=== PATIENT | male | born 2000 | race African-American/Black ===

== ENCOUNTER 2020-01-22 14:42 | Emergency (ER) | payer OTHER ==
[2020-01-22 14:51] VITALS: BP 132/66; PULSE 74; TEMP 97.3; BMI 24.7
--- NOTE | 2020-01-22 16:01 | PDOC ---
History of Present Illness - General Chief Complaint: Injury Stated Complaint: FALL Time Seen by Provider: 01/22/20 15:08 - History of Present Illness Initial Comments: 01/22/20 15:59 19-year-old male without comorbidities presents for left ankle pain after an inversion type injury while walking at work yesterday. Past History - Medical History Allergies/Adverse Reactions: Allergies Allergy/AdvReac Type Severity Reaction Status Date / Time No Known Allergies Allergy Verified 01/22/20 14:47 - Psycho-Social/Smoking History Smoking History: Never smoked - Substance Abuse Hx (Audit-C & DAST Scrn) How often the patient has a drink containing alcohol: Never Score: In Men: 4 or > Positive; In Women: 3 or > Positive: 0 Screen Result (Pos requires Nsg. Audit-10AR): Negative In the last yr the pt used illegal drug/Rx for NonMed reason: No Score: Yes response is considered Positive: 0 Screen Result (Positive result requires Nsg. DAST-10): Negative Review of Systems - Review of Systems Musculoskeletal: Yes: Joint Pain *Physical Exam - Vital Signs Last Vital Signs Temp Pulse Resp BP Pulse Ox 97.3 F L 74 16 132/66 100 01/22/20 14:47 01/22/20 14:47 01/22/20 14:47 01/22/20 14:47 01/22/20 14:47 - Physical Exam 01/22/20 15:59 Left ankle skin color and temperature normal range of motion is slightly limited. There is no tenderness about the proximal fibula or along its distal course. No tenderness about the medial lateral malleolus base of the fifth metatarsal or navicular. Mild tenderness over the ATFL without instability no gross sensorimotor deficits neurovascular intact. ED Treatment Course - RADIOLOGY Radiology Studies Ordered: Category Date Time Status ANKLE-LEFT [RAD] Stat Radiology 01/22/20 15:37 Completed Medical Decision Making - Medical Decision Making 01/22/20 16:00 No fracture trauma or destructive process on radiograph today. Weight-bear as tolerated with Aircast and crutches follow-up with Ortho Tylenol and Motrin for pain I have reviewed the pathophysiology with the patient. They are in agreement with the treatment plan all questions were answered to their satisfaction. Understanding for follow-up without fail was also conveyed to the patient. Again they are in agreement. Discharge - Discharge Information Problems reviewed: Yes Clinical Impression/Diagnosis: Left ankle sprain Condition: Stable Disposition: HOME - Admission No - Follow up/Referral Referrals: Gwen Cordova [Primary Care Provider] - Blane Olivarez DO [Staff Physician] - - Patient Discharge Instructions Additional Instructions: You may weight-bear as tolerated with use of crutches in the Aircast Tylenol as directed for pain. Return to the emergency room for worsening symptoms. And without fail please follow-up with orthopedic surgery in 1 to 2 days for further evaluation and treatment options. - Post Discharge Activity Work/Back to School Note: Back to Work
== END 2020-01-22 16:05 | disposition home or self-care (01) ==
LOC: JERFT 14:42
DX: S93.402A Sprain of unspecified ligament of left ankle, initial encounter (principal)
CPT/HCPCS: 73610-TC-LT-FY; 99283-25

== ENCOUNTER 2020-06-28 12:09 | Emergency (ER) | payer OTHER ==
[2020-06-28 12:34] VITALS: BP 134/74; PULSE 77; TEMP 97.8; BMI 33.6
[2020-06-28] MEDS ORDERED: IBUPROFEN 600 MG TABLET (FP) PO ONE ×2 (13:13→13:23)
[2020-06-28] MEDS ORDERED: AMOX TR/POT CLAV 875MG/125MG TABLETS (FP) PO ONE (13:13)
[2020-06-28] MEDS ORDERED: AMOX TR/POT CLAV 875MG/125MG TABLETS (FP) ONE (13:23)
== END 2020-06-28 13:26 | disposition home or self-care (01) ==
LOC: JERFT 12:09
DX: K04.7 Periapical abscess without sinus (principal)
CPT/HCPCS: 99284-25